=== PATIENT | male | born 1990 | race Caucasian/White ===

== ENCOUNTER 2017-03-07 00:04 | Emergency (ER) | payer OTHER ==
[2017-03-07] MEDS ORDERED: BACITRACIN 500 U/GM OIN TOP ONE ×2 (00:23→00:45)
[2017-03-07 00:40] VITALS: BP 145/79; PULSE 117; RESP 16; TEMP 98; O2SAT 95
== END 2017-03-07 00:40 | disposition home or self-care (01) | DRG 605 ==
LOC: ED 00:04
DX: S40.812A Abrasion of left upper arm, initial encounter (principal); S40.811A Abrasion of right upper arm, initial encounter; S60.512A Abrasion of left hand, initial encounter; W19.XXXA Unspecified fall, initial encounter; Y93.89 Activity, other specified; Y92.89 Other specified places as the place of occurrence of the external cause; Y99.0 Civilian activity done for income or pay
CPT/HCPCS: 99282; 99284; A6446

== ENCOUNTER 2017-05-30 18:22 | Emergency (ER) | payer OTHER ==
[2017-05-30 18:34] VITALS: BP 104/64; PULSE 85; RESP 16; TEMP 97.6; O2SAT 98
== END 2017-05-30 18:54 | disposition home or self-care (01) | DRG 951 ==
LOC: ED 18:22
DX: Z77.21 Contact with and (suspected) exposure to potentially hazardous body fluids (principal)
CPT/HCPCS: 99282

== ENCOUNTER 2017-07-04 21:28 | Emergency (ER) | payer OTHER ==
[2017-07-04 21:28] VITALS: O2SAT 98
[2017-07-05 03:27] VITALS: BP 121/79; PULSE 82; RESP 16; TEMP 97.4
[2017-07-05 22:44] LABS: BASOPHILS % (AUTO) 1 % (0-3); EOSINOPHILS % (AUTO) 1 % (0-9); HEMATOCRIT 41 % (39-53); MEAN CORPUSCULAR HGB CONC 36.6 gm/dl (32.0-36.0); MONOCYTES % (AUTO) 9.9 % (0-12); NEUTROPHILS % (AUTO) 47.8 % (37-80)
[2017-07-05 22:48] LABS: ALBUMIN 3.8 gm/dl (3.4-5.0); CALCIUM 8.9 mg/dl (8.5-10.1); MEAN CORPUSCULAR VOLUME 81 fL (80-100); POTASSIUM 3.6 mMol/L (3.5-5.1)
== END 2017-07-04 23:00 | disposition home or self-care (01) | DRG 605 ==
LOC: ED 21:28
DX: S61.452A Open bite of left hand, initial encounter (principal); W50.3XXA Accidental bite by another person, initial encounter; Y92.238 Other place in hospital as the place of occurrence of the external cause; Y99.0 Civilian activity done for income or pay
CPT/HCPCS: 80053; 85025; 99282